=== PATIENT | male | born 1970 | race Hispanic/Latino ===

== ENCOUNTER → 2017-08-05 | Day surgery (SDC) | payer OTHER ==
[~2017-08-05] MED LIST: FENTANYL CITRATE/PF 100MCG/2 ML INJ ONE; HYOSCYAMINE SULFATE 0.5 MG/ML AMP ONE; LISINOPRIL10 MG PO; MIDAZOLAM HCL 2 MG/2 ML VIAL ONE; PROPOFOL IV EMULSION 10 MG/ML 50 ML VIAL ONE; SIMVASTATIN PO; TESTOSTERONE IJ
--- NOTE | 2017-08-05 09:49 | Operative Report ---
DATE OF PROCEDURE: August 05, 2017 REFERRING PHYSICIAN: Dr. Lexi Dockery PROCEDURES PERFORMED 1. Esophagogastroduodenoscopy with biopsies. 2. Colonoscopy with polypectomy. INDICATIONS FOR EGD: Heartburn and indigestion. INDICATIONS FOR COLONOSCOPY: Colorectal cancer screening and brother with colon cancer. MEDICATION: Patient was done under MAC. Please see anesthesiologist's note. PROCEDURE: With the patient in the left lateral decubitus position, the flexible fiberoptic Olympus gastroscope was introduced into the esophagus under direct visualization without any difficulty. Some linear erosions were noted in the distal esophagus. The scope was then advanced with ease into the stomach. Mucosa overlying the antrum and the body revealed some diffuse erythema and low-grade to moderate edema, and biopsies were obtained and sent to stain for H. pylori. Pylorus was of normal contour and shape. It was intubated with ease. The scope was advanced all the way to the 2nd portion of the duodenum. The scope was then withdrawn slowly. Mucosa overlying the proximal 2nd portion and the duodenal bulb appeared to be within normal limits. The scope was then withdrawn back into the stomach and retroflexed. The mucosa overlying the fundus and the cardia appeared to be within normal limits. The scope was then straightened out. The stomach was decompressed. The scope was subsequently withdrawn. Patient tolerated the procedure well. IMPRESSION 2. Distal erosive esophagitis. 2. Gastritis, biopsied. Biopsies sent to stain for Helicobacter pylori. PLAN: Follow up histology. Initiate Protonix 40 mg 1 p.o. q.a.m. a.c. Patient was then turned around. After adequate lubrication of the anal canal, a flexible fiberoptic Olympus colonoscope was inserted into the rectum with ease and advanced all the way to the cecum. The scope was then withdrawn slowly. Mucosa overlying the cecum appeared to be within normal limits. One polyp was snared and 1 polyp was hot biopsied from the ascending colon. Two polyps were snared and 1 polyp was hot biopsied from the transverse colon. Diverticular disease was noted to involve the distal descending and the sigmoid colon. There was some scattered diverticula also more proximally. Two polyps were hot biopsied from the sigmoid colon. The scope was then retroflexed into the distal rectum and small internal hemorrhoids were noted, none of which was actively bleeding. The scope was then straightened out. It was subsequently withdrawn. Patient tolerated the procedure well. IMPRESSION 1. Ascending colon polyp times 2, one snared and one hot biopsied. 2. Transverse colon polyps times 3, 2 snared and 1 hot biopsied. 3. Diverticulosis. 4. Sigmoid colon polyps times 2, hot biopsied. 5. Internal hemorrhoids, none actively bleeding. PLAN: Follow up histology. Initiate high-fiber and low-fat diet. Initiate high-fiber supplement. Patient will need a followup colonoscopy in 1 year. Job#: [id number] RI cc:LEXI DOCKERY MD
== END | disposition home or self-care (01) ==
LOC: ENDO 07:36
PROVIDERS: ATTEND Internal Medicine Gastroenterology
DX: Z12.11 Encounter for screening for malignant neoplasm of colon (principal); D12.2 Benign neoplasm of ascending colon; D12.3 Benign neoplasm of transverse colon; D12.5 Benign neoplasm of sigmoid colon; K29.70 Gastritis, unspecified, without bleeding; K22.10 Ulcer of esophagus without bleeding; K57.30 Diverticulosis of large intestine without perforation or abscess without bleeding; K21.9 Gastro-esophageal reflux disease without esophagitis; K44.9 Diaphragmatic hernia without obstruction or gangrene; K64.8 Other hemorrhoids; I10 Essential (primary) hypertension; E78.00 Pure hypercholesterolemia, unspecified; E66.01 Morbid (severe) obesity due to excess calories; R73.03 Prediabetes; G47.33 Obstructive sleep apnea (adult) (pediatric); Z88.8 Allergy status to other drugs, medicaments and biological substances; Z68.41 Body mass index [BMI] 40.0-44.9, adult; Z01.810 Encounter for preprocedural cardiovascular examination; Z80.0 Family history of malignant neoplasm of digestive organs
CPT/HCPCS: 43239; 45384; 45385; 93005; J1980; J2250; 45378

== ENCOUNTER → 2018-08-11 | Outpatient (CLI) | payer OTHER ==
[~2018-08-11] MED LIST changes: -FENTANYL CITRATE/PF 100MCG/2 ML INJ ONE; -HYOSCYAMINE SULFATE 0.5 MG/ML AMP ONE; +LISINOPRIL-HCT1 EAC2 PO; -MIDAZOLAM HCL 2 MG/2 ML VIAL ONE; +NAPROXEN SODIU550 MG PO; +PANTOPRAZOLE SO40 MG PO; -PROPOFOL IV EMULSION 10 MG/ML 50 ML VIAL ONE; +SIMVASTATIN5 MG PO
--- OUTSIDE RECORDS SUMMARY | 2018-08-12 07:29 | XMS REPORT ---
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 Active Problem Family history of malignant neoplasm of gastrointestinal tract V16.0 Active Problem Annual Physical (Routine general medical examination at health care facility) V70.0 Active Problem Mixed hyperlipidemia E78.2 Active Problem Elevated blood pressure reading without diagnosis of hypertension 796.2 May 06, 2007 Active Problem Obesity, morbid, BMI 40.0-49.9 E66.01 Active Problem Essential hypertension, benign 401.1 Active Problem Hypersomnolence G47.10 Active Problem Prediabetes R73.03 Active Problem Memory problem R41.3 Active Problem Male hypogonadism E29.1 Active Problem Low testosterone in male R79.89 Active Problem Gastro-esophageal reflux 530.81 Active Problem High blood triglycerides 272.1 Active Problem Obstructive sleep apnea hypopnea, severe G47.33 Active Problem Herpes zoster without mention of complication 053.9 Active Problem Elevated blood pressure reading without diagnosis of hypertension R03.0 Active Problem Mild single current episode of major depressive disorder F32.0 Active Problem Sleep apnea, unspecified type G47.30 Active Problem Neurasthenia F48.8 Active Problem Obesity E66.9 Active Problem Hypertriglyceridemia E78.1 Active Problem Lumbar pain 724.2 Active Problem Hyperglycemia R73.9 Active Problem Hyperlipidemia E78.5 Active Problem Vitamin D deficiency E55.9 Active Problem Essential hypertension I10 Active Problem Snoring R06.83 Active Medications Medication Code System Code Instructions Start Date End Date Status Dosage Lisinopril-Hydrochlorothiazide [facility] 83168546054 10-12.5 MG Orally Once a day Mar 25, 2015 Active 1 tablet Tramadol HCl [facility] 30104111564 Active not defined Testosterone Cypionate [facility] 28856678261 200 MG/ML Intramuscular once per week Active 1 ml Simvastatin [facility] 56822114060 5 MG Orally Once a day Active 1 tablet in the evening Arimidex [facility] 43796018404 1 MG Orally twice per week Dec 06, 2017 Mar 06, 2018 Active 1/2 tablet Vital Signs Date/Time: Dec 03, 2017 Weight 284 lbs Height 70 in Temperature 97.9 F Cardiac Monitoring Heart Rate 87 /min BMI 40.75 Index Results No Known Results Summary Purpose eClinicalWorks Submission
--- OUTSIDE RECORDS SUMMARY | 2018-08-12 07:29 | XMS REPORT ---
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
--- OUTSIDE RECORDS SUMMARY | 2018-08-12 07:29 | XMS REPORT | Summary of Care ---
Author Author [facility] Organization [facility] Address Unknown Phone Unavailable Encounter HQ Encntr_alias(FIN) [id number] Date(s): 08/11/17 - 08/11/17 [facility] [address] [place] [address]- Discharge Disposition: Home or Self Care Attending Physician: Jose Dockery MD Referring Physician: Jose Dockery MD Vital Signs No data available for this section Problem List No data available for this section Allergies, Adverse Reactions, Alerts Substance Reaction Severity Status NKDA Active Medications No data available for this section Results No data available for this section Immunizations No data available for this section Procedures No data available for this section Social History No data available for this section Assessment and Plan No data available for this section
--- OUTSIDE RECORDS SUMMARY | 2018-08-12 07:29 | XMS REPORT | Summary of Care ---
Author Author [facility] Organization [facility] Address Unknown Phone Unavailable Encounter HQ Encntr_alias(FIN) [id number] Date(s): 07/03/17 - 07/03/17 [facility] [address] [place] [address]- [phone] Discharge Disposition: Home or Self Care Attending Physician: Jose Dockery MD Vital Signs No [...]
--- OUTSIDE RECORDS SUMMARY | 2018-08-12 07:29 | XMS REPORT | Continuity of Care Document ---
Author Author [facility] Organization [facility] Address Unknown Phone Unavailable Care Team Providers Care Maintenance Of Way Clerk Name Role Phone [facility] Unavailable Unavailable Problems Problem Status Onset Date Classification Date Reported Comments Source CPAP 85869 Active 08/01/2017 [facility] SLEEP STUDY Active 07/03/2017 [facility] HOME SLEEP STUDY 80159 Active 07/03/2017 [facility] A FIB WITH RVR Active 01/01/2017 [facility] Elevated blood pressure reading without diagnosis of hypertension Resolved 05/06/2007 Problem 08/02/2018 2.16.840.1.981357.4.391.11.30097 Obesity Active Problem 08/02/2018 2.16.840.1.624908.4.391.11.34916 Hyperglycemia Active Problem 08/02/2018 2.16.840.1.293654.4.391.11.86636 Dizziness Active Diagnosis 05/15/2017 2.16.840.1.037729.4.391.11.08531 Hypertriglyceridemia Active Problem 08/02/2018 2.16.840.1.015233.4.391.11.98011 Essential hypertension Active Problem 08/02/2018 2.16.840.1.921054.4.391.11.69544 Snoring Active Problem 08/02/2018 2.16.840.1.133009.4.391.11.82414 Mixed hyperlipidemia Active Problem 08/02/2018 2.16.840.1.378269.4.391.11.96639 Hyperlipidemia Active Problem 08/02/2018 2.16.840.1.686414.4.391.11.95168 Prediabetes Active Problem 08/02/2018 2.16.840.1.193828.4.391.11.89467 Mild single current episode of major depressive disorder Active Problem 08/02/2018 2.16.840.1.067361.4.391.11.39900 Annual Physical Active Problem 08/02/2018 2.16.840.1.686492.4.391.11.25433 Elevated blood pressure reading without diagnosis of hypertension Active Problem 08/02/2018 2.16.840.1.181012.4.391.11.71963 Family history of malignant neoplasm of gastrointestinal tract Active Problem 08/02/2018 2.16.840.1.087910.4.391.11.66179 Obesity, morbid, BMI 40.0-49.9 Active Problem 08/02/2018 2.16.840.1.047963.4.391.11.89094 Vitamin D deficiency Active Problem 08/02/2018 2.16.840.1.155308.4.391.11.22977 Hypersomnolence Active Problem 08/02/2018 2.16.840.1.734976.4.391.11.69112 High blood triglycerides Active Problem 08/02/2018 2.16.840.1.843190.4.391.11.22506 Gastro-esophageal reflux Active Problem 08/02/2018 2.16.840.1.045845.4.391.11.91625 Essential hypertension, benign Active Problem 08/02/2018 2.16.840.1.939588.4.391.11.74481 Herpes zoster without mention of complication Active Problem 08/02/2018 2.16.840.1.006663.4.391.11.55876 Lumbar pain Active Problem 08/02/2018 2.16.840.1.328560.4.391.11.43885 Lumbar disc herniation with radiculopathy Active Problem 08/02/2018 2.16.840.1.040164.4.391.11.92290 Male hypogonadism Active Problem 08/02/2018 2.16.840.1.838478.4.391.11.42849 Sleep apnea, unspecified type Active Problem 08/02/2018 2.16.840.1.680488.4.391.11.74263 Low testosterone in male Active Problem 08/02/2018 2.16.840.1.398905.4.391.11.26266 Neurasthenia Active Problem 08/02/2018 2.16.840.1.194787.4.391.11.27855 Obstructive sleep apnea hypopnea, severe Active Problem 08/02/2018 2.16.840.1.001140.4.391.11.83778 Decreased libido Active Diagnosis 06/05/2017 2.16.840.1.027888.4.391.11.40244 Polyp of colon, unspecified part of colon, unspecified type Active Diagnosis 09/10/2017 2.16.840.1.203998.4.391.11.16996 High serum estradiol Active Diagnosis 07/12/2018 2.16.840.1.873520.4.391.11.93791 Radicular pain of lumbosacral region Active Diagnosis 07/12/2018 2.16.840.1.730736.4.391.11.29790 Elevated hematocrit Active Diagnosis 07/12/2018 2.16.840.1.544962.4.391.11.08977 History of herniated intervertebral disc Active Diagnosis 07/12/2018 2.16.840.1.968493.4.391.11.78696 PAROXYSMAL ATRIAL FIBRILLATION Active [facility] Medications Medication Details Route Status Patient Instructions Ordering Provider Order Date Source Needle (Disp) as directed intramuscularly Active 23G X 1" intramuscularly once pe week [facility] 04/02/2018 2.16.840.1.322616.4.391.11.26992 Syringe/Needle (Disp) as directed intramuscular use Active 23G X 1" 1 ML intramuscular use inject medication once per week [facility] 04/02/2018 2.16.840.1.008902.4.391.11.93421 Arimidex 1/2 tablet Orally Active 1 MG Orally twice per week [facility] 12/06/2017 2.16.840.1.954353.4.391.11.40376 Testosterone Cypionate 1 ml Intramuscular Active 200 MG/ML Intramuscular once per week [facility] 07/02/2017 2.16.840.1.641337.4.391.11.49539 Simvastatin 1 tablet in the evening Orally Active 5 MG Orally [facility] a [facility] 06/04/2017 2.16.840.1.070846.4.391.11.06401 Lisinopril 1 tablet Orally Active 10 mg Orally Once a day [facility] 06/04/2017 2.16.840.1.349873.4.391.11.79868 [place] 1 tablet by mouth Active 7.5-325 MG by mouth three times a day (tid) PRN severe pain [facility] 03/25/2015 2.16.840.1.264558.4.391.11.57926 Lisinopril-Hydrochlorothiazide 1 tablet Orally Active 10-12.5 MG Orally Once a day [facility] 03/25/2015 2.16.840.1.741884.4.391.11.67412 Potassium Chloride ER 1 capsule Orally Active 10 MEQ Orally daily [facility] 03/25/2015 2.16.840.1.849103.4.391.11.47186 Tramadol HCl 1 tablet by mouth Active 50mg Tablet by mouth three times a day (tid) as needed (prn) moderate pain [facility] 11/13/2012 2.16.840.1.820757.4.391.11.54712 Lisinopril 1 tablet Orally Active 10 mg Orally Once a day [facility] 2.16840.1.200755.4.391.11.53472 Pantoprazole Sodium 1 tablet Orally Active 40 mg Orally Once a day [facility] 2.16840.1.600964.4.391.11.33407 Tramadol HCl not defined NA Active [facility] 2.16840.1.484916.4.391.11.02245 Testosterone Cypionate 1 ml Intramuscular Active 200 MG/ML Intramuscular once per week [facility] 2.16840.1.155869.4.391.11.81998 Simvastatin 1 tablet in the evening Orally Active 5 MG Orally Once a day [facility] 2.16840.1.193805.4.391.11.43402 Lisinopril-Hydrochlorothiazide 1 tablet Orally Active 10-12.5 MG Orally Once a day [facility] 216840.1.781270.4.391.11.96110 Syringe/Needle (Disp) as directed intramuscular use Active 23G X 1" 1 ML intramuscular use inject medication once per week [facility] 2.16.840.1.067574.4.391.11.86439 Needle (Disp) as directed intramuscularly Active 23G X 1" intramuscularly once pe week [facility] 2.16.840.1.018455.4.391.11.83314 Arimidex 1/2 tablet Orally Active 1 MG Orally twice per week [facility] 2.16.840.1.360830.4.391.11.51005 Naproxen 1 tablet Orally Active 500 mg Orally twice a day (bid) [facility] 2.16.840.1.529336.4.391.11.69947 Allergies, Adverse Reactions, Alerts Substance Category Reaction Severity Reaction type Status Date Reported Comments Source Meloxicam Adverse Reaction rash Adverse Reaction Active 07/01/2018 2.16.840.1.550123.4.391.11.66266 Immunizations No Data Provided for This Section Results No Data Provided for This Section Pathology Reports No Data Provided for This Section Diagnostic Reports No Data Provided for This Section Consultation Notes No Data Provided for This Section Discharge Summaries No Data Provided for This Section History and Physicals No Data Provided for This Section Vital Signs Vital Sign Value Date Comments Source Weight 276 07/01/2018 2.16.840.1.981792.4.391.11.40165 Height 70 07/01/2018 2.16.840.1.860549.4.391.11.23912 Temperature Oral (F) 96.3 F 07/01/2018 2.16.840.1.859089.4.391.11.89181 Heart Rate 80 07/01/2018 2.16.840.1.066400.4.391.11.92380 Weight 275 04/02/2018 2.16.840.1.538814.4.391.11.95686 Height 70 04/02/2018 2.16.840.1.471318.4.391.11.91402 Temperature Oral (F) 97.7 F 04/02/2018 2.16.840.1.595912.4.391.11.76097 Heart Rate 93 04/02/2018 2.16.840.1.157546.4.391.11.16326 Weight 284 12/03/2017 2.16.840.1.159200.4.391.11.53581 Height 70 12/03/2017 2.16.840.1.003327.4.391.11.88326 Temperature Oral (F) 97.9 F 12/03/2017 2.16.840.1.613467.4.391.11.40177 Heart Rate 87 12/03/2017 2.16.840.1.701367.4.391.11.51289 Weight 287 10/28/2017 2.16.840.1.461876.4.391.11.77852 Height 70 10/28/2017 2.16.840.1.431718.4.391.11.82591 Temperature Oral (F) 96.9 F 10/28/2017 2.16.840.1.885287.4.391.11.78168 Heart Rate 102 10/28/2017 2.16.840.1.665735.4.391.11.40011 Weight 284 09/09/2017 2.16.840.1.022977.4.391.11.93076 Height 70 09/09/2017 2.16.840.1.509243.4.391.11.70519 Temperature Oral (F) 97.4 F 09/09/2017 2.16.840.1.866945.4.391.11.28599 Heart Rate 98 09/09/2017 2.16.840.1.991575.4.391.11.69200 Weight 284 06/04/2017 2.16.840.1.976322.4.391.11.22882 Height 70 06/04/2017 2.16.840.1.552022.4.391.11.38971 Temperature Oral (F) 98.6 F 06/04/2017 2.16.840.1.425278.4.391.11.20147 Heart Rate 86 06/04/2017 2.16.840.1.807518.4.391.11.04303 Weight 285 04/30/2017 2.16.840.1.143945.4.391.11.21114 Height 70 04/30/2017 2.16.840.1.680131.4.391.11.36630 Temperature Oral (F) 98.1 F 04/30/2017 2.16.840.1.053989.4.391.11.31982 Heart Rate 83 04/30/2017 2.16.840.1.910963.4.391.11.17220 Encounters Location Location Details Encounter Type Encounter Number Reason For Visit Attending Provider ADM Date DC Date Status Source [facility] [id number] [facility] 07/03/2017 07/04/2017 [facility] [id number] [facility] 08/11/2017 08/12/2017 [facility] Procedures No Data Provided for This Section Assessment and Plan No Data Provided for This Section Plan of Care No Data Provided for This Section Social History Social History Date Source No data available for this section 08/12/2017 [facility] Family History No Data Provided for This Section Advance Directives No Data Provided for This Section Functional Status No Data Provided for This Section
--- OUTSIDE RECORDS SUMMARY | 2018-08-12 07:29 | XMS REPORT ---
Author Author Jose Dockery Organization [employer] Address Unknown Phone Unavailable Care Team Providers Care Machine Specialist Name Role Phone Jose Dockery CP Unavailable Allergies, Adverse Reactions, Alerts Substance Reaction Event Type Meloxicam rash Drug Allergy Problems Problem Type Condition Code Onset Dates Condition Status Assessment High serum estradiol R79.89 Active Assessment Hyperglycemia R73.9 Active Assessment Male hypogonadism E29.1 Active Assessment Mixed hyperlipidemia E78.2 Active Assessment Essential hypertension I10 Active Problem [...] type G47.30 Active Problem Neurasthenia F48.8 Active Assessment Radicular pain of lumbosacral region M54.17 Active Problem Obesity E66.9 Active Assessment Elevated hematocrit R71.8 Active Problem Hypertriglyceridemia E78.1 Active Problem Lumbar pain 724.2 Active Assessment History of herniated intervertebral disc Z87.39 Active Problem Hyperglycemia R73.9 Active Problem Hyperlipidemia E78.5 Active Problem Vitamin D deficiency E55.9 Active Problem Essential hypertension I10 Active Problem Snoring R06.83 Active Medications Medication Code System Code Instructions Start Date End Date Status Dosage Lisinopril-Hydrochlorothiazide [facility] 89298498435 10-12.5 MG Orally Once a day Active 1 tablet Syringe/Needle (Disp) NDC 0 23G X 1" 1 ML intramuscular use inject medication once per week Active as directed Needle (Disp) NDC 0 23G X 1" intramuscularly once pe week Active as directed Tramadol HCl [facility] 17276724061 Active not defined Arimidex [facility] 03996427797 1 MG Orally twice per week Active 1/2 tablet Simvastatin [facility] 86305435607 5 MG Orally Once a day Active 1 tablet in the evening Testosterone Cypionate [facility] 02354221475 200 MG/ML Intramuscular once per week Active 1 ml Naproxen [facility] [address]-28 500 mg Orally twice a day (bid) Active 1 tablet Vital Signs Date/Time: July 01, 2018 Weight 276 lbs Height 70 in Temperature 96.3 F Cardiac Monitoring Heart Rate 80 /min BMI 39.60 Index Results No Known Results Summary Purpose eClinicalWorks Submission
--- OUTSIDE RECORDS SUMMARY | 2018-08-12 07:29 | XMS REPORT ---
Author Author Jose Dockery Organization [employer] Address Unknown Phone Unavailable Care Team Providers Care School Business Manager Name Role Phone Jose Dockery CP Unavailable [...]
--- OUTSIDE RECORDS SUMMARY | 2018-08-12 07:29 | XMS REPORT ---
Author Author Jose Dockery Organization [employer] Address Unknown Phone Unavailable Care Team Providers Care Glass Deposition Tender Name Role Phone Jose Dockery CP Unavailable [...]
--- OUTSIDE RECORDS SUMMARY | 2018-08-12 07:30 | XMS REPORT ---
Author Author Jose Dockery Organization [employer] Address Unknown Phone Unavailable Care Team Providers Care Labor Economics Professor Name Role Phone Jose Dockery CP Unavailable [...]
--- OUTSIDE RECORDS SUMMARY | 2018-08-12 07:30 | XMS REPORT ---
Author Author Jose Dockery Organization [employer] Address Unknown Phone Unavailable Care Team Providers Care Ticket Sales Agent Name Role Phone Jose Dockery CP Unavailable [...]
--- OUTSIDE RECORDS SUMMARY | 2018-08-12 07:30 | XMS REPORT ---
Author Author Jose Dockery Organization [employer] Address Unknown Phone Unavailable Care Team Providers Care Imaging Technologist Name Role Phone Jose Dockery CP Unavailable [...]
--- OUTSIDE RECORDS SUMMARY | 2018-08-12 07:30 | XMS REPORT ---
Author Author Jose Dockery Organization [employer] Address Unknown Phone Unavailable Care Team Providers Care Aircraft Metalsmith Name Role Phone Jose Dockery CP Unavailable [...]
--- OUTSIDE RECORDS SUMMARY | 2018-08-12 07:30 | XMS REPORT ---
Author Author Jose Dockery Organization [employer] Address Unknown Phone Unavailable Care Team Providers Care Windows Server Architect Name Role Phone Jose Dockery CP Unavailable [...]
--- OUTSIDE RECORDS SUMMARY | 2018-08-12 07:30 | XMS REPORT ---
Author Author Jose Dockery Organization [employer] Address Unknown Phone Unavailable Care Team Providers Care Licensed Practical Nurse Clinic Nurse Name Role Phone Jose Dockery CP Unavailable [...]
--- OUTSIDE RECORDS SUMMARY | 2018-08-12 07:30 | XMS REPORT ---
Author Author Carmen Servin [facility] [employer] Address Unknown Phone Unavailable Care Team Providers Care Aircraft Steel Fabricator Name Role Phone Carmen Servin CP Unavailable [...] Neurasthenia F48.8 Active Problem Obesity E66.9 Active Assessment Obesity, morbid, BMI 40.0-49.9 E66.01 Active Problem Hypertriglyceridemia E78.1 Active Problem Lumbar pain 724.2 Active Problem Hyperglycemia R73.9 Active Problem Hyperlipidemia E78.5 Active Problem Vitamin D deficiency E55.9 Active Problem Essential hypertension I10 Active Problem Snoring R06.83 Active Medications Medication Code System Code Instructions Start Date End Date Status Dosage Needle (Disp) NDC 0 23G X 1" intramuscularly once pe week Apr 02, 2018 Active as directed Lisinopril-Hydrochlorothiazide [facility] 93231000715 10-12.5 MG Orally Once a day Active [address] [facility] 85454608439 5 MG Orally Once a day Active 1 tablet in the evening Arimidex [facility] 99699951153 1 MG Orally twice per week Active 1/2 tablet Tramadol HCl [facility] 54271085590 Active not defined Syringe/Needle (Disp) NDC 0 23G X 1" 1 ML intramuscular use inject medication once per week Apr 02, 2018 Active as directed Testosterone Cypionate [facility] 91589347190 200 MG/ML Intramuscular once per week Active 1 ml Vital Signs Date/Time: Apr 02, 2018 Weight 275 lbs Height 70 in Temperature 97.7 F Cardiac Monitoring Heart Rate 93 /min BMI 39.45 Index Results No Known Results Summary Purpose eClinicalWorks Submission
--- OUTSIDE RECORDS SUMMARY | 2018-08-12 07:30 | XMS REPORT ---
Author Author Jose Dockery Organization [employer] Address Unknown Phone Unavailable Care Team Providers Care Construction Laborer Name Role Phone Jose Dockery CP Unavailable [...]
--- OUTSIDE RECORDS SUMMARY | 2018-08-12 07:30 | XMS REPORT ---
Author Author Jose Dockery Organization [employer] Address Unknown Phone Unavailable Care Team Providers Care Statement Distribution Clerk Name Role Phone Jose Dockery CP Unavailable [...]
--- OUTSIDE RECORDS SUMMARY | 2018-08-12 07:31 | XMS REPORT ---
Author Author Jose Dockery Organization [employer] Address Unknown Phone Unavailable Care Team Providers Care Help Desk Manager Name Role Phone Jose Dockery CP [...]
--- OUTSIDE RECORDS SUMMARY | 2018-08-12 07:31 | XMS REPORT ---
Author Author Jose Dockery Organization [employer] Address Unknown Phone Unavailable Care Team Providers Care Travel Assistant Name Role Phone Jose Dockery CP Unavailable [...]
--- OUTSIDE RECORDS SUMMARY | 2018-08-12 07:31 | XMS REPORT ---
Author Author Jose Dockery Organization [employer] Address Unknown Phone Unavailable Care Team Providers Care Jira Administrator Name Role Phone Jose Dockery CP Unavailable [...]
--- OUTSIDE RECORDS SUMMARY | 2018-08-12 07:31 | XMS REPORT ---
Author Author Jose Dockery Organization [employer] Address Unknown Phone Unavailable Care Team Providers Care Vacuum Pan Tender Name Role Phone Jose Dockery CP [...]
--- OUTSIDE RECORDS SUMMARY | 2018-08-12 07:31 | XMS REPORT ---
Author Author Carmen Servin [facility] [employer] Address Unknown Phone Unavailable Care Team Providers Care Pipeline Maintenance Supervisor Name Role Phone Carmen Servin CP Unavailable Allergies, Adverse Reactions, Alerts Substance Reaction Event Type Meloxicam rash Drug Allergy Problems Problem Type Condition Code Onset Dates Condition Status Assessment Obstructive sleep apnea hypopnea, severe G47.33 Active Problem Lumbar disc herniation with radiculopathy [...] Instructions Start Date End Date Status Dosage Testosterone Cypionate [facility] 16962394820 200 MG/ML Intramuscular once per week July 02, 2017 Active 1 ml Simvastatin [facility] 36765638875 5 MG Orally Once a day June 04, 2017 Active 1 tablet in the evening Tramadol HCl [facility] 83236414160 Active not defined Lisinopril-Hydrochlorothiazide [facility] 04162467102 10-12.5 MG Orally Once a day Mar 25, 2015 Active 1 tablet Vital Signs Date/Time: Oct 28, 2017 Weight 287 lbs Height 70 in Temperature 96.9 F Cardiac Monitoring Heart Rate 102 /min BMI 41.18 Index Results No Known Results Summary Purpose [employer] Submission
--- OUTSIDE RECORDS SUMMARY | 2018-08-12 07:31 | XMS REPORT ---
Author Author Jose Dockery Organization [employer] Address Unknown Phone Unavailable Care Team Providers Care Sales And Marketing Coordinator Name Role Phone Jose Dockery CP Unavailable [...] Instructions Start Date End Date Status Dosage Potassium Chloride ER [facility] 75756941457 10 MEQ Orally daily Mar 25, 2015 Mar 20, 2018 Active 1 capsule Results No Known Results Summary Purpose [employer] Submission
--- OUTSIDE RECORDS SUMMARY | 2018-08-12 07:31 | XMS REPORT ---
Author Author Jose Dockery Organization [employer] Address Unknown Phone Unavailable Care Team Providers Care Wardrobe Assistant Name Role Phone Jose Dockery CP [...] Start Date End Date Status Dosage Lisinopril-Hydrochlorothiazide [facility] 20029031409 10-12.5 MG Orally Once a day Mar 25, 2015 Active 1 tablet Results No Known Results Summary Purpose [employer] Submission
--- OUTSIDE RECORDS SUMMARY | 2018-08-12 07:31 | XMS REPORT ---
Author Author Jose Dockery Organization [employer] Address Unknown Phone Unavailable Care Team Providers Care Deputy Clerk Of [address] Court Name Role Phone Jose Dockery CP Unavailable Allergies, Adverse Reactions, Alerts Substance Reaction Event Type Meloxicam rash Drug Allergy Problems Problem Type Condition Code Onset Dates Condition Status Assessment Male hypogonadism E29.1 Active Assessment Polyp of colon, unspecified part of colon, unspecified type K63.5 Active Assessment Mixed hyperlipidemia E78.2 Active Assessment [...] Date End Date Status Dosage Testosterone Cypionate [facility] 66722035975 200 MG/ML Intramuscular once per week July 02, 2017 Active 1 ml Lisinopril [facility] 81661577942 10 mg Orally Once a day Active 1 tablet Simvastatin [facility] 00751490807 5 MG Orally Once a day June 04, 2017 Active 1 tablet in the evening Pantoprazole Sodium [facility] 99879717212 40 mg Orally Once a day Active 1 tablet Vital Signs Date/Time: September 09, 2017 Weight 284 lbs Height 70 in Temperature 97.4 F Cardiac Monitoring Heart Rate 98 /min BMI 40.75 Index Results No Known Results Summary Purpose [employer] Submission
--- OUTSIDE RECORDS SUMMARY | 2018-08-12 07:31 | XMS REPORT ---
Author Author Carmen Servin [facility] [employer] Address Unknown Phone Unavailable Care Team Providers Care Marine Driller Name Role Phone Carmen Servin CP Unavailable Allergies No Known Allergies Problems Problem Type Condition Code Onset Dates Condition Status Assessment Male hypogonadism E29.1 Active Assessment High serum estradiol R79.89 Active Assessment Essential hypertension I10 Active Problem [...] Start Date End Date Status Dosage Lisinopril-Hydrochlorothiazide [facility] 16323092925 10-12.5 MG Orally Once a day Mar 25, 2015 Active 1 tablet Testosterone Cypionate [facility] 47422606584 200 MG/ML Intramuscular once per week Active 1 ml Arimidex [facility] 05715764796 1 MG Orally twice per week Dec 06, 2017 June 12, 2018 Active 1/2 tablet Results No Known Results Summary Purpose [employer] Submission
--- OUTSIDE RECORDS SUMMARY | 2018-08-12 07:31 | XMS REPORT ---
Author Author Carmen Servin Organization [employer] Address Unknown Phone Unavailable Care Team Providers Care Conveyor Installer Name Role Phone Carmen Servin CP Unavailable [...]
== END | disposition home or self-care (01) ==
LOC: RAD 05:00 → OR 08-12 07:27 → EDSTATUS 08-12 12:00
PROVIDERS: ATTEND Internal Medicine Gastroenterology
DX: Z09 Encounter for follow-up examination after completed treatment for conditions other than malignant neoplasm (principal); Z01.810 Encounter for preprocedural cardiovascular examination; Z53.09 Procedure and treatment not carried out because of other contraindication; Z80.0 Family history of malignant neoplasm of digestive organs
CPT/HCPCS: 93005

== ENCOUNTER → 2018-08-25 | Outpatient (CLI) | payer OTHER ==
--- NOTE | 2018-08-25 11:26 | Diagnostic Imaging Report ---
EXAM: lumbar spine, 2 view, AP and supine lateral DATE: 08/25/2018 INDICATION: Back pain COMPARISON: None FINDINGS: Alignment is normal. No acute fracture or vertebral height loss. Minimal degenerative changes of the lower lumbar spine with small osteophyte formation and mild facet arthropathy. IMPRESSION: No acute osseous injury. Minimal lower lumbar spine degenerative changes. Signed by: Boo Hector MD on 08/25/2018 11:23 AM
== END ==
LOC: RAD 08:48
PROVIDERS: ATTEND Family Medicine
DX: M54.17 Radiculopathy, lumbosacral region (principal); Z98.890 Other specified postprocedural states
CPT/HCPCS: 72110

== ENCOUNTER → 2018-09-01 | Day surgery (SDC) | payer OTHER ==
[~2018-09-01] MED LIST changes: +FENTANYL CITRATE/PF 100MCG/2 ML INJ ONE; +HYOSCYAMINE 0.125 MG TAB ONE; +MIDAZOLAM HCL 2 MG/2 ML VIAL ONE; +PROPOFOL IV EMULSION 10 MG/ML 50 ML VIAL ONE
--- OUTSIDE RECORDS SUMMARY | 2018-09-01 09:29 | XMS REPORT | Continuity of Care Document ---
Author Author Desigual Organization [employer] Address Unknown Phone Unavailable Care Team Providers Care Psychotherapist Social Worker Name Role Phone [facility] Unavailable Unavailable Problems Problem Status Onset Date Classification Date Reported Comments Source CPAP 13654 Active 08/01/2017 [facility] SLEEP STUDY Active 07/03/2017 [facility] HOME SLEEP STUDY 55987 Active 07/03/2017 [facility] A FIB WITH RVR Active 01/01/2017 [facility] Elevated blood pressure reading without diagnosis of hypertension Resolved 05/06/2007 Problem 08/02/2018 2.16.840.1.948121.4.391.11.96754 Obesity Active Problem 08/02/2018 2.16.840.1.689363.4.391.11.02720 Hyperglycemia Active Problem 08/02/2018 2.16.840.1.002431.4.391.11.83081 Dizziness Active Diagnosis 05/15/2017 2.16.840.1.445132.4.391.11.12656 Hypertriglyceridemia Active Problem 08/02/2018 2.16.840.1.965898.4.391.11.57571 Essential hypertension Active Problem 08/02/2018 2.16.840.1.100499.4.391.11.83558 Snoring Active Problem 08/02/2018 2.16.840.1.251054.4.391.11.22382 Mixed hyperlipidemia Active Problem 08/02/2018 2.16.840.1.487634.4.391.11.16309 Hyperlipidemia Active Problem 08/02/2018 2.16.840.1.019559.4.391.11.20487 Prediabetes Active Problem 08/02/2018 2.16.840.1.223826.4.391.11.21692 Mild single current episode of major depressive disorder Active Problem 08/02/2018 2.16.840.1.224605.4.391.11.52857 Annual Physical Active Problem 08/02/2018 2.16.840.1.764305.4.391.11.36791 Elevated blood pressure reading without diagnosis of hypertension Active Problem 08/02/2018 2.16.840.1.256843.4.391.11.34260 Family history of malignant neoplasm of gastrointestinal tract Active Problem 08/02/2018 2.16.840.1.872089.4.391.11.47119 Obesity, morbid, BMI 40.0-49.9 Active Problem 08/02/2018 2.16.840.1.994210.4.391.11.74357 Vitamin D deficiency Active Problem 08/02/2018 2.16.840.1.422849.4.391.11.98663 Hypersomnolence Active Problem 08/02/2018 2.16.840.1.087565.4.391.11.83197 High blood triglycerides Active Problem 08/02/2018 2.16.840.1.739323.4.391.11.85859 Gastro-esophageal reflux Active Problem 08/02/2018 2.16.840.1.253539.4.391.11.29613 Essential hypertension, benign Active Problem 08/02/2018 2.16.840.1.223618.4.391.11.52687 Herpes zoster without mention of complication Active Problem 08/02/2018 2.16.840.1.289167.4.391.11.39063 Lumbar pain Active Problem 08/02/2018 2.16.840.1.486471.4.391.11.62535 Lumbar disc herniation with radiculopathy Active Problem 08/02/2018 2.16.840.1.576922.4.391.11.02747 Male hypogonadism Active Problem 08/02/2018 2.16.840.1.949596.4.391.11.42540 Sleep apnea, unspecified type Active Problem 08/02/2018 2.16.840.1.436700.4.391.11.83720 Low testosterone in male Active Problem 08/02/2018 2.16.840.1.497151.4.391.11.59589 Neurasthenia Active Problem 08/02/2018 2.16.840.1.487471.4.391.11.20069 Obstructive sleep apnea hypopnea, severe Active Problem 08/02/2018 2.16.840.1.572955.4.391.11.53450 Decreased libido Active Diagnosis 06/05/2017 2.16.840.1.456564.4.391.11.09820 Polyp of colon, unspecified part of colon, unspecified type Active Diagnosis 09/10/2017 2.16.840.1.271490.4.391.11.95850 High serum estradiol Active Diagnosis 07/12/2018 2.16.840.1.047551.4.391.11.06991 Radicular pain of lumbosacral region Active Diagnosis 07/12/2018 2.16.840.1.939518.4.391.11.50033 Elevated hematocrit Active Diagnosis 07/12/2018 2.16.840.1.670227.4.391.11.39512 History of herniated intervertebral disc Active Diagnosis 07/12/2018 2.16.840.1.906936.4.391.11.30074 PAROXYSMAL ATRIAL FIBRILLATION Active [facility] Medications Medication Details Route Status Patient Instructions Ordering Provider Order Date Source Needle (Disp) as directed intramuscularly Active 23G X 1" intramuscularly once pe week [facility] 04/02/2018 2.16.840.1.331988.4.391.11.44424 Syringe/Needle (Disp) as directed intramuscular use Active 23G X 1" 1 ML intramuscular use inject medication once per week [facility] 04/02/2018 2.16.840.1.827349.4.391.11.15547 Arimidex 1/2 tablet Orally Active 1 MG Orally twice per week [facility] 12/06/2017 2.16.840.1.190383.4.391.11.92083 Testosterone Cypionate 1 ml Intramuscular Active 200 MG/ML Intramuscular once per week [facility] 07/02/2017 2.16.840.1.111874.4.391.11.96642 Simvastatin 1 tablet in the evening Orally Active 5 MG Orally [facility] a [facility] 06/04/2017 2.16.840.1.367241.4.391.11.05004 Lisinopril 1 tablet Orally Active 10 mg Orally Once a day [facility] 06/04/2017 2.16.840.1.090092.4.391.11.92419 [place] 1 tablet by mouth Active 7.5-325 MG by mouth three times a day (tid) PRN severe pain [facility] 03/25/2015 2.16.840.1.838522.4.391.11.13561 Lisinopril-Hydrochlorothiazide 1 tablet Orally Active 10-12.5 MG Orally Once a day [facility] 03/25/2015 2.16.840.1.772094.4.391.11.08510 Potassium Chloride ER 1 capsule Orally Active 10 MEQ Orally daily [facility] 03/25/2015 2.16.840.1.296025.4.391.11.11080 Tramadol HCl 1 tablet by mouth Active 50mg Tablet by mouth three times a day (tid) as needed (prn) moderate pain [facility] 11/13/2012 2.16.840.1.024993.4.391.11.64577 Lisinopril 1 tablet Orally Active 10 mg Orally Once a day [facility] 2.16840.1.247086.4.391.11.40900 Pantoprazole Sodium 1 tablet Orally Active 40 mg Orally Once a day [facility] 2.16840.1.372964.4.391.11.27028 Tramadol HCl not defined NA Active [facility]ery 2.16840.1.219570.4.391.11.48590 Testosterone Cypionate 1 ml Intramuscular Active 200 MG/ML Intramuscular once per week Dock[facility] 2.16840.1.669688.4.391.11.67858 Simvastatin 1 tablet in the evening Orally Active 5 MG Orally Once a day [facility] 2.16840.1.697679.4.391.11.35776 Lisinopril-Hydrochlorothiazide 1 tablet Orally Active 10-12.5 MG Orally Once a day [facility] 216840.1.031200.4.391.11.22518 Syringe/Needle (Disp) as directed intramuscular use Active 23G X 1" 1 ML intramuscular use inject medication once per week [facility] 2.16.840.1.587147.4.391.11.99800 Needle (Disp) as directed intramuscularly Active 23G X 1" intramuscularly once pe week [facility] 2.16.840.1.476935.4.391.11.59296 Arimidex 1/2 tablet Orally Active 1 MG Orally twice per week [facility] 2.16.840.1.525634.4.391.11.64728 Naproxen 1 tablet Orally Active 500 mg Orally twice a day (bid) [facility] 2.16.840.1.164212.4.391.11.08052 Allergies, Adverse Reactions, Alerts Substance Category Reaction Severity Reaction type Status Date Reported Comments Source Meloxicam Adverse Reaction rash Adverse Reaction Active 07/01/2018 2.16.840.1.875796.4.391.11.91428 Immunizations No Data Provided for This Section [...] Value Date Comments Source Weight 276 07/01/2018 2.16.840.1.662858.4.391.11.34240 Height 70 07/01/2018 2.16.840.1.462705.4.391.11.90857 Temperature Oral (F) 96.3 F 07/01/2018 2.16.840.1.932108.4.391.11.15153 Heart Rate 80 07/01/2018 2.16.840.1.397802.4.391.11.72514 Weight 275 04/02/2018 2.16.840.1.656820.4.391.11.85988 Height 70 04/02/2018 2.16.840.1.645709.4.391.11.09483 Temperature Oral (F) 97.7 F 04/02/2018 2.16.840.1.708461.4.391.11.56267 Heart Rate 93 04/02/2018 2.16.840.1.845055.4.391.11.66101 Weight 284 12/03/2017 2.16.840.1.956398.4.391.11.76376 Height 70 12/03/2017 2.16.840.1.061626.4.391.11.22006 Temperature Oral (F) 97.9 F 12/03/2017 2.16.840.1.400161.4.391.11.54597 Heart Rate 87 12/03/2017 2.16.840.1.633017.4.391.11.93142 Weight 287 10/28/2017 2.16.840.1.257285.4.391.11.96401 Height 70 10/28/2017 2.16.840.1.198084.4.391.11.32493 Temperature Oral (F) 96.9 F 10/28/2017 2.16.840.1.664354.4.391.11.16498 Heart Rate 102 10/28/2017 2.16.840.1.734620.4.391.11.82296 Weight 284 09/09/2017 2.16.840.1.971207.4.391.11.38726 Height 70 09/09/2017 2.16.840.1.559987.4.391.11.61273 Temperature Oral (F) 97.4 F 09/09/2017 2.16.840.1.894563.4.391.11.84824 Heart Rate 98 09/09/2017 2.16.840.1.956485.4.391.11.09504 Weight 284 06/04/2017 2.16.840.1.030716.4.391.11.71409 Height 70 06/04/2017 2.16.840.1.635452.4.391.11.27646 Temperature Oral (F) 98.6 F 06/04/2017 2.16.840.1.101340.4.391.11.09492 Heart Rate 86 06/04/2017 2.16.840.1.601998.4.391.11.17134 Weight 285 04/30/2017 2.16.840.1.662303.4.391.11.68599 Height 70 04/30/2017 2.16.840.1.191860.4.391.11.54210 Temperature Oral (F) 98.1 F 04/30/2017 2.16.840.1.579087.4.391.11.37491 Heart Rate 83 04/30/2017 2.16.840.1.203689.4.391.11.87169 Encounters Location Location Details Encounter Type Encounter Number Reason For Visit Attending Provider ADM Date DC Date Status Source [facility] [id number] [facility] 07/03/2017 07/04/2017 [facility] [id number] [facility] 08/11/2017 08/12/2017 [facility] Procedures No Data Provided for This Section Assessment and Plan No Data Provided for This Section Plan of Care No Data Provided for This Section Social History Social History Date Source No data available for this section 08/12/2017 [facility] Family History No Data Provided for This Section Advance Directives No Data Provided for This Section Functional Status No Data Provided for This Section
--- OUTSIDE RECORDS SUMMARY | 2018-09-01 09:30 | XMS REPORT ---
Author [facility] Address Unknown Phone Unavailable Care Team Providers Care Medical Coding Instructor Name Role Phone LEXI MATA Unavailable Unavailable Problems This patient has no known problems. Allergies, Adverse Reactions, Alerts This patient has no known allergies or adverse reactions. Medications This patient has no known medications. Results Test Description Test Time Test Comments Text Results Atomic Results Result Comments SP LUMBAR, COMPLETE MIN 4VW 2018-08-25 11:20:00 [place] [address] Patient Name: NONI RUFFIN MR #: [id number] : 1970 Age/Sex: 48/M Req #: [id number] Adm Physician: Ordered by: LEXI MATA MD Report #: [id number] Location: [facility] Room/Bed: Procedure: [id number] DX/SP LUMBAR, COMPLETE MIN 4VW Exam Date: 08/25/18 Exam Time: 0905 REPORT STATUS: Signed EXAM: lumbar spine, 2 view, AP and supine lateral DATE: 08/25/2018 INDICATION: Back pain COMPARISON: None FINDINGS: Alignment is normal. No acute fracture or vertebral height loss. Minimal degenerative changes of the lower lumbar spine with small osteophyte formation and mild facet arthropathy. IMPRESSION: No acute osseous injury. Minimal lower lumbar spine degenerative changes. Signed by: Bassam Hector MD on 08/25/2018 11:23 AM Dictated By: BASSAM HECTOR MD [id number] Transcribed By: BRANNON on 08/25/18 1123 COPY TO: LEXI MATA MD
[2018-09-01 13:00] VITALS: BP 136/81
--- NOTE | 2018-09-01 13:11 | Operative Report ---
DATE OF PROCEDURE: 09/01/2018 SURGEON: Darrian Hernandez MD PROCEDURE: Colonoscopy and polypectomy. INDICATIONS FOR COLONOSCOPY: Surveillance colonoscopy, personal history of colon polyps, brother with colon cancer. MEDICATIONS: The patient was done under MAC, please see anesthesiologist's note. PROCEDURE IN DETAIL: With the patient in left lateral decubitus position, a flexible fiberoptic Olympus colonoscope was inserted into the rectum with ease and advanced all the way to the cecum. It was then withdrawn slowly. Mucosa overlying the cecum appeared to be within normal limits. The ascending, transverse, and descending colon other than for some scattered diverticular disease, which was more prominent in the left colon appeared to be within normal limits. A minute polyp was hot biopsied from the distal sigmoid colon. The rectum appeared to be within normal limits. The scope was then straightened. The scope was then retroflexed into the distal rectum and small internal hemorrhoids were noted, none of which was actively bleeding. The scope was then straightened out, it was subsequently withdrawn. The patient tolerated the procedure well. IMPRESSION: 1. Diverticulosis. 2. Sigmoid colon polyp hot biopsied. 3. Internal hemorrhoids, none actively bleeding. PLAN: Follow up histology. Initiate high-fiber, low-fat diet. Initiate high-fiber supplement. The patient might benefit from a followup colonoscopy in 3 years. Darrian Hernanedz MD [facility]/JAY JAYL /[id number] cc: Jose Dockery MD
== END | disposition home or self-care (01) ==
LOC: OR 09:26
PROVIDERS: ATTEND Internal Medicine Gastroenterology
DX: Z12.11 Encounter for screening for malignant neoplasm of colon (principal); K63.5 Polyp of colon; Z86.010 Personal history of colon polyps; Z80.0 Family history of malignant neoplasm of digestive organs; F41.9 Anxiety disorder, unspecified; G47.33 Obstructive sleep apnea (adult) (pediatric); I10 Essential (primary) hypertension; E78.00 Pure hypercholesterolemia, unspecified; K21.9 Gastro-esophageal reflux disease without esophagitis; E66.01 Morbid (severe) obesity due to excess calories; K57.30 Diverticulosis of large intestine without perforation or abscess without bleeding; K64.8 Other hemorrhoids
CPT/HCPCS: 45384; J2250; J2704; J3010; 45378

== ENCOUNTER → 2018-09-16 | Outpatient (CLI) | payer OTHER ==
[~2018-09-16] MED LIST changes: -FENTANYL CITRATE/PF 100MCG/2 ML INJ ONE; +GADOBENATE DIMEGLUMINE 1 ML IV ONE; -HYOSCYAMINE 0.125 MG TAB ONE; -MIDAZOLAM HCL 2 MG/2 ML VIAL ONE; -PROPOFOL IV EMULSION 10 MG/ML 50 ML VIAL ONE
[2018-09-16 08:49] LABS: BLOOD UREA NITROGEN 15 mg/dL (7-26); BUN/CREATININE RATIO 13 (6-25); EST GLOMERULAR FILTRATION RATE > 60 ML/MIN (60-)
--- NOTE | 2018-09-16 10:18 | Diagnostic Imaging Report ---
MRI SPINE LUMBAR WOW HISTORY: Low back and left leg pain, back surgery in December 2017 COMPARISON: Lumbar spine radiographs 08/25/2018, MRI of the lumbar spine 07/23/2013 TECHNIQUE: Multiplanar, multisequence MRI of the lumbar spine was performed without and with intravenous contrast. 20 mL of MultiHance were administered. DISCUSSION: Number of non-rib bearing lumbar vertebral bodies: 5. Alignment: Straightening of the lumbar lordosis. Mild thoracolumbar levoscoliosis is present. Vertebrae: Small nodular T1 hyperintense lesion in the L1 vertebral body is likely a benign hemangioma. Otherwise, no acute fractures, infection or neoplasm. Conus medullaris: Normal, ends at T12-L1. Cauda equina: No masses or arachnoiditis. Posterior paraspinal muscles: Posterior incision signal changes are present. There is mild left paraspinal muscle edema at the lumbosacral junction. Soft tissues: Small T2 hyperintense lesion in the left kidney is likely a cyst. Mild multilevel lumbar disc degeneration is superimposed on a congenitally narrow lumbar spinal canal. T12-L1: Patent canal and foramina. L1-L2: Minimal disc bulge without significant canal or foraminal stenosis. L2-L3: Minimal disc bulge without significant canal or foraminal stenosis. L3-L4: Disc bulge without significant canal or foraminal stenosis. L4-L5: Left foraminotomy changes. Mild ill-defined enhancement along the foraminotomy site involves the inferior left neural foramen; this may be due to scar tissue. Mild left foraminal stenosis is due to disc bulge and facet arthrosis. No significant canal or right foraminal stenosis. L5-S1: Left foraminotomy changes. Ill-defined enhancement along the foraminotomies site involves the left neural foramen; this may be scar tissue. Moderate to severe left foraminal stenosis is due to disc bulge and facet arthrosis. The left L5 nerve root is likely impinged. No significant canal or right foraminal stenosis. IMPRESSION: 1. Left foraminotomy changes at L4-L5 and L5-S1. Ill-defined enhancement along these left foraminotomy defects, involving the respective left neural foramina (greater at L5-S1), may be due to scar tissue. 2. Moderate to severe left L5-S1 and mild left L4-L5 degenerative foraminal stenoses. The exiting left L5 nerve root is likely impinged. 3. Underlying mild multilevel lumbar disc degeneration superimposed on a congenitally narrow lumbar spinal canal. 4. No significant canal stenosis. Signed by: Dr. Marco A Truong M.D. on 09/16/2018 10:15 AM
== END ==
LOC: MRI 07:49
PROVIDERS: ATTEND Family Medicine
DX: M54.17 Radiculopathy, lumbosacral region (principal); Z98.890 Other specified postprocedural states
CPT/HCPCS: 36415; 72158; 82565; 84520; A9577